=== PATIENT | female | born 1990 | race Caucasian/White ===

== ENCOUNTER 2023-11-02 22:17 | Emergency (ER) | payer MEDICAID ==
[~2023-11-02] VITALS: Ht 144.8 cm; Wt 73.0 kg
[2023-11-02 23:05] VITALS: O2SAT 98
[2023-11-03] MEDS ORDERED: KETOROLAC 60MG/2ML VIAL IM ONE
[2023-11-03] MEDS ORDERED: PROCHLORPERAZINE MALEATE 10MG TABLET PO ONE
[2023-11-03] MEDS ORDERED: DIPHENHYDRAMINE 25MG CAPSULE PO ONE
[2023-11-03 00:14] VITALS: BP 140/93
[2023-11-03] MEDS ORDERED: ACYC200C31 MT (00:24)
[2023-11-03] MEDS ORDERED: ACYCLOVIR 400 MG TABLET PO ONE (00:30)
[2023-11-03 00:38] VITALS: PULSE 80; RESP 16; TEMP 98.4
== END 2023-11-03 00:40 | disposition home or self-care (01) ==
LOC: ER 22:17
DX: R51.9 Headache, unspecified (principal); B00.1 Herpesviral vesicular dermatitis
CPT/HCPCS: 99284; 81025; Q0163; Q0164; J1885

== ENCOUNTER 2024-11-29 16:30 | Emergency (ER) | payer MEDICAID ==
[~2024-11-29] VITALS: Ht 157.5 cm; Wt 82.0 kg
[~2024-11-29 16:30] MED LIST: ACYC200C31 MT
[2024-11-29 16:33] VITALS: BP 142/74; TEMP 98.2; O2SAT 100
[2024-11-29 16:37] VITALS: PULSE 76; RESP 18; O2SAT 98
[2024-11-29 20:09] LABS: BASOPHILS % 1.4 % (0.0-2.0); DIFFERENTIAL COMMENT 0; EOSINOPHILS % 2.1 % (0.0-5.0); HEMATOCRIT. 36.3 % (36.0-48.0); LYMPHOCYTES % 23.1 % (20.0-50.0); MEAN CORPUSCULAR HEMOGLOBIN 23.6 pg (28.0-32.0); MEAN CORPUSCULAR HGB CONC 30.2 g/dL (31.0-37.0); MEAN CORPUSCULAR VOLUME 78.2 fL (81.0-99.0); MEAN PLATELET VOLUME 7.8 fl (7.4-10.4); MONOCYTES % 5.4 % (2.0-8.0); PLATELET 315 x1000/uL (130-400); RED BLOOD CELL COUNT 4.64 mill/uL (4.2-5.4); RED CELL DISTRIBUTION WIDTH 18.1 % (11.6-14.6); WHITE BLOOD COUNT 10.1 x1000/uL (4.5-11.0)
[2024-11-29 20:16] LABS: CARBON DIOXIDE 17 mEq/L (21-32); CHLORIDE 112 mEq/L (98-107); SODIUM 138 mEq/L (136-145)
[2024-11-29 20:17] LABS: CALCIUM 8.6 mg/dL (8.7-10.4)
[2024-11-29 20:21] LABS: AMMONIA < 17 uMol/L (<32); CREATININE 1.1 mg/dL (0.6-1.0)
[2024-11-29 20:22] LABS: GLUCOSE 93 mg/dL (70-105); UREA NITROGEN BLOOD 30 mg/dL (9-23)
[2024-11-29 20:23] LABS: ALANINE AMINOTRANSFERASE < 7 IU/L (10-49)
[2024-11-29 20:24] LABS: ALBUMIN 3.1 g/dL (3.2-4.8); ASPARTATE AMINOTRANSFERASE 11 IU/L (<34); BILIRUBIN TOTAL 0.2 mg/dL (0.1-1.0); PROTEIN TOTAL 6.2 g/dL (6.0-8.3)
[2024-11-29 20:25] LABS: T4 FREE 0.98 ng/dL (0.89-1.76); THYROID STIMULATING HORMONE 6.04 uIU/mL (0.55-4.78)
[2024-11-29 20:34] LABS: HCG SCREEN NEGATIVE
[2024-11-29 20:49] LABS: CLARITY URINE CLOUDY (CLEAR); COLOR URINE DARK YELLOW (YELLOW); GLUCOSE URINE NEGATIVE (NEGATIVE); KETONES URINE NEGATIVE (NEGATIVE); LEUKOCYTE ESTERASE URINE 1+ (NEGATIVE); NITRITE URINE NEGATIVE (NEGATIVE); OCCULT BLOOD URINE 2+ (NEGATIVE); PH URINE 5.5 (4.5-8.0); PROTEIN URINE 4+ (NEGATIVE); SPECIFIC GRAVITY URINE 1.035 (1.005-1.030); UROBILINOGEN URINE 0.2 E.U./dL (0.2-1.0)
[2024-11-29 21:13] LABS: BACTERIA URINE 1+; SQUAMOUS EPITHELIAL CELL URINE 1+ /lpf (RARE/1+)
[2024-11-29] MEDS ORDERED: NITR-87 MT (23:40)
== END 2024-11-29 23:44 | disposition home or self-care (01) ==
LOC: ER 16:30
DX: N39.0 Urinary tract infection, site not specified (principal); E03.9 Hypothyroidism, unspecified; I10 Essential (primary) hypertension; D64.9 Anemia, unspecified; Z98.890 Other specified postprocedural states
CPT/HCPCS: 36415; 80053; 81003; 82140; 84439; 84443; 84703; 85025; 99283